=== PATIENT | female | born 1990 | race African-American/Black ===

== ENCOUNTER 2023-10-17 18:30 | Emergency (ER) | payer MEDICAID ==
[~2023-10-17] VITALS: Ht 157.5 cm; Wt 57.0 kg
[2023-10-17 18:46] VITALS: BP 128/76; PULSE 102; RESP 16; TEMP 98.2; O2SAT 100
== END 2023-10-17 22:54 | disposition left against medical advice (07) ==
LOC: ER 18:30
DX: N93.8 Other specified abnormal uterine and vaginal bleeding (principal); Z53.21 Procedure and treatment not carried out due to patient leaving prior to being seen by health care provider
CPT/HCPCS: 99281